=== PATIENT | female | born 1985 | race Caucasian/White ===

== ENCOUNTER 2018-04-29 07:31 | Outpatient (CLI) | payer OTHER | END 2018-04-29 07:32 | disposition home or self-care (01) | LOC: BICULT 07:31 | PROVIDERS: ATTEND Family Medicine | DX: R10.11 Right upper quadrant pain (principal) | CPT/HCPCS: 76705 ==

== ENCOUNTER 2023-01-06 10:21 | Emergency (ER) | payer BC, OTHER ==
[2023-01-06] MEDS ORDERED: Metoclopramide HCl 10 MG/2 ML VIAL ONE (13:32)
[2023-01-06] MEDS ORDERED: Ketorolac Tromethamine 30 MG/ML VIAL ONE (13:32)
[2023-01-06] MEDS ORDERED: Acetaminophen 500 MG TAB ONE (13:32)
[2023-01-06] MEDS ORDERED: diphenhydrAMINE 50 MG/ML VIAL ONE (13:32)
== END 2023-01-06 15:21 | disposition home or self-care (01) ==
LOC: ERS 10:21
DX: G43.909 Migraine, unspecified, not intractable, without status migrainosus (principal); I10 Essential (primary) hypertension
CPT/HCPCS: 96361; 96365; 96375; J1200; J1885; J2765

== ENCOUNTER 2023-01-08 06:38 | Emergency (ER) | payer BC, OTHER ==
[2023-01-08] MEDS ORDERED: Ibuprofen 800 MG TAB ONE (07:04)
[2023-01-08] MEDS ORDERED: Metoclopramide HCl 10 MG TAB ONE (07:04)
[2023-01-08] MEDS ORDERED: Magnesium 2 GM/50 ML BAG (IN WATER) ONE (09:45)
[2023-01-08] MEDS ORDERED: Iopamidol-370 76% 500 ML 1 ML ONE (12:22)
== END 2023-01-08 11:04 | disposition home or self-care (01) ==
LOC: ERS 06:38
DX: R51.9 Headache, unspecified (principal); I10 Essential (primary) hypertension
CPT/HCPCS: 70450; 70496; 96365; J3475; Q9967

== ENCOUNTER 2024-05-11 14:27 | Observation (INO) | payer BC ==
[2024-05-11] MEDS ORDERED: LORazepam 2 MG/ML SYR.(CARPUJECT) ONE (14:57)
[2024-05-11 14:59] LABS: #Basophils 0.03 10x3/uL (0.0-0.2); %Basophils 0.3 % (0.0-1.0); %Eosinophils 1.8 % (0.0-10.0); %Monocytes 9.3 % (0.0-10.0); %Neutrophils 68.3 % (42.0-75.0); Hematocrit 43.8 % (36.0-47.0); Hemoglobin 14.6 g/dL (12.0-16.0); Mean Corpuscular HGB CONC 33.3 g/dL (32.0-36.0); Mean Corpuscular Hemoglobin 31.4 pg (27.0-31.0); Mean Corpuscular Volume 94.2 fL (78.0-98.0); Mean Platelet Volume 9.8 fL (7.4-10.4); Platelet Count 345 10x3/uL (130-400); Red Blood Cell (RBC) Count 4.65 mill/uL (4.20-5.40)
[2024-05-11 15:26] LABS: ALT (SGPT) 10 U/L (8-55); AST (SGOT) 16 U/L (5-34); Albumin 4.2 g/dL (3.5-5.0); Alkaline Phosphatase 44 U/L (40-110); Anion Gap 13 mmol/L (10-20); BUN (Urea Nitrogen) 10 mg/dL (7.0-18.7); Bilirubin, Total 0.6 mg/dL (0.2-1.2); Calc. Creatinine Clearance 0 mL/min (70-130); Calcium 10.2 mg/dL (7.8-10.44); Carbon Dioxide 23 mmol/L (22-29); Chloride 106 mmol/L (98-107); Estimated GFR 95; Globulin 3.1 g/dL (2.4-3.5); Glucose 107 mg/dL (70-105); Potassium 4.2 mmol/L (3.5-5.1); Protein, Total 7.3 g/dL (6.0-8.3); Sodium 138 mmol/L (136-145)
[2024-05-11 15:30] LABS: Troponin I Less than 0.010 ng/mL (< 0.028)
[2024-05-11] MEDS ORDERED: Aspirin Chewable 81 MG TAB ONE (17:01)
[2024-05-11] MEDS ORDERED: Senokot S 8.6-50 MG TAB PO PRN (17:28)
[2024-05-11] MEDS ORDERED: Ondansetron PF 4 MG/2 ML Vial IVP PRN (17:28)
[2024-05-11] MEDS ORDERED: Ondansetron ODT 4 MG TAB PO PRN (17:28)
[2024-05-11] MEDS ORDERED: Calcium Carbonate 500 MG ChewTAB PO PRN (17:28)
[2024-05-11] MEDS ORDERED: Electrolyte Replacement Protocol 1 EACH FS SCH (17:30)
[2024-05-11] MEDS ORDERED: Nitroglycerin 0.4 MG TAB (25 Tab Bottle) SL PRN (17:31)
[2024-05-11 18:28] LABS: Magnesium 1.9 mg/dL (1.6-2.6)
[2024-05-11 18:36] LABS: Troponin I Less than 0.010 ng/mL (< 0.028)
[2024-05-11 20:58] LABS: Troponin I Less than 0.010 ng/mL (< 0.028)
[2024-05-11 21:01] VITALS: BMI 29.7
[2024-05-11] MEDS: Famotidine 20 MG TAB PO SCH (21:57)
[2024-05-11] MEDS: diphenhydrAMINE 25 MG CAP PO SCH (21:57)
[2024-05-11] MEDS: Magnesium 2 GM/50 ML(in water) 2 GM in Premix 1 BAG IVPB SCH (21:58)
[2024-05-12] MEDS: Ibuprofen 200 MG TAB PO PRN (07:24)
[2024-05-12] MEDS: Enoxaparin 40 MG (0.4 mL) SYRINGE SC SCH (08:03)
[2024-05-12] MEDS: Aspirin Chewable 81 MG TAB PO SCH (08:03)
[2024-05-12 08:37] LABS: #Basophils 0.05 10x3/uL (0.0-0.2); %Basophils 0.6 % (0.0-1.0); %Lymphocytes 25.5 % (21.0-51.0); %Monocytes 11.3 % (0.0-10.0); %Neutrophils 59.4 % (42.0-75.0); Hemoglobin 15.1 g/dL (12.0-16.0); Mean Corpuscular HGB CONC 32.1 g/dL (32.0-36.0); Mean Corpuscular Hemoglobin 31.5 pg (27.0-31.0); Mean Corpuscular Volume 97.9 fL (78.0-98.0); Mean Platelet Volume 10.2 fL (7.4-10.4); Platelet Count 329 10x3/uL (130-400); RBC Distribution Width 12.2 % (11.5-14.5)
[2024-05-12 08:49] LABS: Anion Gap 15 mmol/L (10-20); BUN (Urea Nitrogen) 15 mg/dL (7.0-18.7); Calc. Creatinine Clearance 124 mL/min (70-130); Calcium 9.3 mg/dL (7.8-10.44); Carbon Dioxide 19 mmol/L (22-29); Chloride 109 mmol/L (98-107); Estimated GFR 98; Glucose 72 mg/dL (70-105); Potassium 4.1 mmol/L (3.5-5.1); Sodium 139 mmol/L (136-145)
[2024-05-12] MEDS ORDERED: Regadenoson 0.4 MG/5 ML SYRINGE ONE (09:17)
[2024-05-12 15:40] VITALS: BP 127/67; TEMP 98
== END 2024-05-12 16:09 | disposition home or self-care (01) ==
LOC: ERS 14:27 → ERHOLD 16:25 → 2SW 20:45
PROVIDERS: ADMIT Hospitalist; ATTEND Internal Medicine
DX: R07.89 Other chest pain (principal); F90.9 Attention-deficit hyperactivity disorder, unspecified type; F32.A Depression, unspecified; F41.9 Anxiety disorder, unspecified; G43.909 Migraine, unspecified, not intractable, without status migrainosus; R00.2 Palpitations; Z88.5 Allergy status to narcotic agent; Z79.82 Long term (current) use of aspirin; Z90.89 Acquired absence of other organs; Z82.49 Family history of ischemic heart disease and other diseases of the circulatory system; Z79.899 Other long term (current) drug therapy
CPT/HCPCS: 36415; 71045; 78452; 80048; 80053; 83735; 84484; 85025; 93005; 93017; 93306; 96374; A9502; J2060; J2785; J3475